=== PATIENT | female | born 1985 | race Caucasian/White ===

== ENCOUNTER 2016-07-06 09:13 | Observation (INO) | payer BC ==
[~2016-07-06 09:13] MED LIST: Acetaminophen 1000mg Inj 100 ML IV ONE; DEXAMETHASONE PF 10 MG/1 ML VIAL ONE; LIDOCAINE MPF 2% - 5 ML (20 MG/1 ML) ONE; LIDOCAINE W/ SODIUM BICARB 0.5 ML SYR ONE; Lactated Ringers 2,000 ML PRIMARY IV ONE; MIDAZOLAM 5 MG/1 ML ONE; ONDANSETRON 4 MG/2 ML VIAL ONE; ROCURONIUM 10 MG/1 ML - 5 ML VIAL IVP ONE; SCOPOLAMINE HYDROBROMIDE 1.5 MG - 1 EACH PATCH TRANSDERM ONE; Sodium Chloride 0.9% 100 ML IV ONE; fentaNYL Inj 250 MCG/5 ML VIAL ONE
[2016-07-06] MEDS ORDERED: KETOROLAC 30 MG/1 ML VIAL ONE ×2 (09:17→12:41)
[2016-07-06] MEDS ORDERED: SUFENTANIL 50 MCG/1 ML ONE ×2 (09:22→11:46)
[2016-07-06 09:30] LABS: BILIRUBIN,URINE NEGATIVE (NEG); CLARITY,URINE CLEAR (CLEAR); GLUCOSE, URINE (UA) NEGATIVE (NEG); LEUKOCYTE ESTERASE ,URINE NEGATIVE (NEG); NITRATE,URINE NEGATIVE (NEG); OCCULT BLOOD,URINE NEGATIVE (NEG); PH,URINE 6.5 (5.0-8.5); PROTEIN,URINE NEGATIVE (NEG); UROBILINOGEN,URINE 0.2 EU/dL (0.2)
[2016-07-06] MEDS ORDERED: KETAMINE 100 MG/1 ML - 5 ML ONE ×2 (09:31→11:54)
[2016-07-06 09:32] LABS: URINE SAMPLE TYPE CLEAN CATCH URINE
[2016-07-06 09:49] LABS: HEMATOCRIT 41.9 % (37.0-47.0); HEMOGLOBIN 14.6 g/dL (12.0-16.0)
[2016-07-06] MEDS ORDERED: Lactated Ringers 1,000 ML PRIMARY IV ONE ×4 (09:50→12:40)
[2016-07-06] MEDS ORDERED: SUGAMMADEX SODIUM 200 MG/2 ML VIAL IV ONE ×2 (10:04→12:41)
[2016-07-06] MEDS ORDERED: FUROSEMIDE 10 MG/1 ML - 4 ML ONE (10:44)
[2016-07-06] MEDS ORDERED: BUPIVACAINE 0.25% W/ EPI - 10 ML VIAL ONE ×2 (11:07→11:19)
[2016-07-06] MEDS ORDERED: LIDOCAINE HCL 2 % 10 ML JELLY URO-JECT TOPICAL ONE ×2 (11:07→12:40)
[2016-07-06] MEDS ORDERED: fentaNYL Inj 250 MCG/5 ML VIAL ONE (11:46)
[2016-07-06] MEDS ORDERED: Opium-Belladonna 60-16.2mg 1 EACH SUPP.RECT RECTAL ONE ×3 (12:23→12:40)
[2016-07-06] MEDS ORDERED: oxyCODONE-ACETAMINOPHEN 5-325 TAB PO PRN (13:08)
[2016-07-06] MEDS ORDERED: Ondansetron ODT Tab 8 MG TAB PO PRN (13:08)
[2016-07-06] MEDS ORDERED: NORMAL SALINE 10 ML SYRINGE FLUSH IVP PRN ×2 (13:08→13:28)
[2016-07-06] MEDS ORDERED: IBUPROFEN 800 MG TABLET PO PRN (13:08)
--- NOTE | 2016-07-06 13:14 | OB.OP.NOTE ---
Operative Report Surgeon: Haider Cushion Maker Hand: Denis Paulson MD Anesthesia Type: General Anesthesia Provider: Farooq Pablo CRNA Surgery Date: 07/06/16 Preoperative Diagnosis: CPP/CANDACE Postoperative Diagnosis: Same Procedure: da Erich Hysterectomy/Bilateral Salpingectomy/TVT-O/Cystoscopy Estimated Blood Loss (mL): 150 Complications: 2800 ml Findings at Surgery: Normal size uterus. Normal ovaries. The Essure coil was visible in the left cornua. No visible evidence of bowel, bladder, or ureter injury. Both ureters ejected urine at cysto and the bladder dome was intact. Indications for the Procedure: CPP after Essure placement and endometrial ablation. CANDACE. Description of Procedure: See dictated operative report. Plan: Routine post op care and discharge to home.
[2016-07-06] MEDS ORDERED: fentaNYL Inj 100 MCG/2 ML VIAL IVP PRN (13:28)
[2016-07-06] MEDS ORDERED: Prochlorperazine Edisylate Inj 10mg/2ml vial IVP PRN (13:28)
[2016-07-06] MEDS ORDERED: oxyCODONE IR Tab 5 MG TAB PO ONE (13:28)
[2016-07-06] MEDS ORDERED: Nalbuphine Inj 20 MG/ML Ampule IVP PRN (13:28)
[2016-07-06] MEDS ORDERED: Lactated Ringers 1,000 ML PRIMARY IV SCH (13:30)
[2016-07-06] MEDS: HYDROmorphone 2 MG/1 ML IVP PRN ×2 (13:35→13:40)
[2016-07-06 16:24] VITALS: RESP 16
[2016-07-06 17:38] VITALS: TEMP 97.1
[2016-07-06] MEDS ORDERED: DOCUSATE 100 MG CAPSULE PO SCH (21:00)
== END 2016-07-06 18:15 | disposition home or self-care (01) ==
LOC: SDSC 09:13 → MED/SURG 16:28
PROVIDERS: ADMIT Obstetrics & Gynecology; ATTEND Obstetrics & Gynecology
DX: R10.2 Pelvic and perineal pain (principal); N39.3 Stress incontinence (female) (male)
CPT/HCPCS: 57288; 58552; 81003; 84703; 85014; 85018; J0131; J0694; J1885; J2704; J3010; J1100; J1940; J2001; J2250; J2405; J3490; J7050; J7120